=== PATIENT | male | born 1990 | race Caucasian/White ===

== ENCOUNTER 2017-09-02 21:43 | Inpatient (IN) | payer MEDICAID ==
[~2017-09-02] VITALS: Ht 180.3 cm; Wt 64.5 kg
[2017-09-02 22:28] LABS: microscopic required? NO
[2017-09-02 22:31] LABS: BASOPHIL % 0.7 % (0-2); PLATELET COUNT 277 x10^3mcL (130-400); RED CELL DISTRIBUTION WIDTH 13.6 % (11.5-14.5)
[2017-09-02 22:34] LABS: urine erythrocyte NEGATIVE (NEGATIVE)
[2017-09-02 22:45] LABS: ALKALINE PHOSPHATASE 98 U/L (46-116); ALT/SGPT 23 U/L (16-63); AST/SGOT 17 U/L (15-37); BILIRUBIN TOTAL 0.36 mg/dL (0.20-1.00); CALCIUM 8.7 mg/dL (8.5-10.1); CHLORIDE SERUM 100 mmol/L (98-107); CREATININE SERUM 1.1 mg/dL (0.7-1.3); GFR1 > 60 mL/min; GLUCOSE SERUM 102 mg/dL (74-106); MAGNESIUM 2.4 mg/dL (1.8-2.4); SODIUM SERUM 136 mmol/L (136-145)
[2017-09-02 22:48] LABS: POTASSIUM SERUM 2.6 mmol/L (3.5-5.1)
[2017-09-02 22:55] LABS: AMPHETAMINE QUAL UR NONE DETECTED (NEG <=1000)
[2017-09-03] VITALS (7 sets, daily range): BP systolic 105–143; BP diastolic 44–75
[2017-09-03 01:19] LABS: CHOLESTEROL/HDL RATIO 5.8
[2017-09-03 01:23] LABS: T3 TOTAL 1.67 ng/mL
[2017-09-03 01:29] LABS: FREE T4 1.2 ng/dL (0.76-1.46); FREE THYROXINE INDEX 3.3 ug/dL (1.4-4.5); T4(THYROXINE) 8.7 ug/dL (4.7-13.3)
[2017-09-03 09:53] LABS: BASOPHIL % 0.7 % (0-2); PLATELET COUNT 220 x10^3mcL (130-400)
[2017-09-03 10:13] LABS: CALCIUM 8.5 mg/dL (8.5-10.1); CARBON DIOXIDE 23.2 mmol/L (21-32); CHLORIDE SERUM 108 mmol/L (98-107); CREATININE SERUM 0.8 mg/dL (0.7-1.3); GFR1 > 60 mL/min; GLUCOSE SERUM 95 mg/dL (74-106); POTASSIUM SERUM 3.9 mmol/L (3.5-5.1); SODIUM SERUM 139 mmol/L (136-145)
[2017-09-04 06:02] VITALS: BP 116/69
[2017-09-04 07:24] LABS: BASOPHIL % 0.8 % (0-2); PLATELET COUNT 208 x10^3mcL (130-400)
[2017-09-04 07:28] LABS: CALCIUM 8.4 mg/dL (8.5-10.1); CARBON DIOXIDE 22.8 mmol/L (21-32); CHLORIDE SERUM 111 mmol/L (98-107); CREATININE SERUM 0.9 mg/dL (0.7-1.3); GFR1 > 60 mL/min; GLUCOSE SERUM 91 mg/dL (74-106); MAGNESIUM 2.2 mg/dL (1.8-2.4); PHOSPHOROUS 3.6 mg/dL (2.5-4.9); POTASSIUM SERUM 3.6 mmol/L (3.5-5.1); SODIUM SERUM 142 mmol/L (136-145)
[2017-09-04 09:00] VITALS: BP 133/81
[2017-09-04 13:48] VITALS: BP 106/52
[2017-09-04 17:33] VITALS: BP 121/69
[2017-09-04 21:42] VITALS: BP 129/79
[2017-09-05 06:04] VITALS: BP 102/51
[2017-09-05 06:13] LABS: BASOPHIL % 0.7 % (0-2); PLATELET COUNT 243 x10^3mcL (130-400); RED CELL DISTRIBUTION WIDTH 13.9 % (11.5-14.5)
[2017-09-05 06:27] LABS: CALCIUM 8.5 mg/dL (8.5-10.1); CARBON DIOXIDE 21.6 mmol/L (21-32); CHLORIDE SERUM 110 mmol/L (98-107); CREATININE SERUM 0.8 mg/dL (0.7-1.3); GFR1 > 60 mL/min; GLUCOSE SERUM 90 mg/dL (74-106); POTASSIUM SERUM 3.6 mmol/L (3.5-5.1); SODIUM SERUM 142 mmol/L (136-145)
[2017-09-05 08:12] VITALS: BP 111/57
[2017-09-05 13:19] VITALS: BP 119/72
[2017-09-05 17:04] VITALS: BP 123/62
[2017-09-05 21:02] VITALS: BP 124/74
[2017-09-06 05:08] VITALS: BP 112/52
[2017-09-06 06:15] LABS: BASOPHIL % 0.7 % (0-2); PLATELET COUNT 263 x10^3mcL (130-400); RED CELL DISTRIBUTION WIDTH 13.8 % (11.5-14.5)
[2017-09-06 06:26] LABS: CALCIUM 8.6 mg/dL (8.5-10.1); CHLORIDE SERUM 112 mmol/L (98-107); CREATININE SERUM 0.9 mg/dL (0.7-1.3); GFR1 > 60 mL/min; GLUCOSE SERUM 93 mg/dL (74-106); POTASSIUM SERUM 3.8 mmol/L (3.5-5.1); SODIUM SERUM 144 mmol/L (136-145)
[2017-09-06 09:29] VITALS: BP 124/65
[2017-09-06 13:53] VITALS: BP 128/74
[2017-09-06] MEDS ORDERED: TRAZODONE100 MG PO (14:52)
[2017-09-06] MEDS ORDERED: ZIPRASIDONE HCL40 M1 PO (14:53)
[2017-09-06] MEDS ORDERED: LORAZEPAM0.5 MG PO (14:54)
[2017-09-06 15:23] VITALS: BP 128/74
== END 2017-09-06 16:55 | disposition home or self-care (01) | DRG 425 ==
LOC: ED 21:43 → DU 23:26
PROVIDERS: Emergency Medicine; Family Medicine; ADMIT Family Medicine
DX: E87.6 Hypokalemia (principal); N17.0 Acute kidney failure with tubular necrosis; G93.41 Metabolic encephalopathy; S00.83XA Contusion of other part of head, initial encounter; F15.10 Other stimulant abuse, uncomplicated; D72.829 Elevated white blood cell count, unspecified; F20.9 Schizophrenia, unspecified; R73.03 Prediabetes; F43.0 Acute stress reaction; E78.1 Pure hyperglyceridemia; F12.10 Cannabis abuse, uncomplicated; Z79.899 Other long term (current) drug therapy; Z68.1 Body mass index [BMI] 19.9 or less, adult; X83.8XXA Intentional self-harm by other specified means, initial encounter; Y93.89 Activity, other specified; Y92.018 Other place in single-family (private) house as the place of occurrence of the external cause
CPT/HCPCS: 83880; 84439; G0480; J1200; J2060; J3480; J3486; J7030; J7040; Q0092

== ENCOUNTER 2017-12-24 10:54 | Emergency (ER) | payer OTHER ==
[~2017-12-24] VITALS: Ht 177.8 cm; Wt 82.1 kg
[~2017-12-24 10:54] MED LIST: LORAZEPAM0.5 MG PO; TRAZODONE100 MG PO; ZIPRASIDONE HCL40 M1 PO
[2017-12-24 11:03] VITALS: Ht 177.8 cm; Wt 82.1 kg
[2017-12-24 11:59] VITALS: BP 119/61
== END 2017-12-24 11:59 | disposition home or self-care (01) ==
LOC: ED 10:54
DX: F20.9 Schizophrenia, unspecified (principal); Z76.0 Encounter for issue of repeat prescription

== ENCOUNTER 2018-01-05 10:15 | Emergency (ER) | payer OTHER ==
[~2018-01-05] VITALS: Ht 170.2 cm; Wt 81.6 kg
[2018-01-05 10:30] VITALS: Ht 170.2 cm; Wt 81.6 kg
[2018-01-05 11:28] VITALS: BP 121/63
== END 2018-01-05 11:28 | disposition home or self-care (01) ==
LOC: ED 10:15
DX: F41.9 Anxiety disorder, unspecified (principal); F20.9 Schizophrenia, unspecified; Z76.0 Encounter for issue of repeat prescription

== ENCOUNTER 2019-03-23 16:59 | Emergency (ER) | payer OTHER ==
[~2019-03-23] VITALS: Ht 180.3 cm; Wt 73.9 kg
[2019-03-23 17:08] VITALS: Ht 180.3 cm; Wt 73.9 kg
[2019-03-23 18:09] LABS: BASOPHIL % 0.6 % (0-2); PLATELET COUNT 254 x10^3mcL (130-400); RED CELL DISTRIBUTION WIDTH 14.2 % (11.5-14.5)
[2019-03-23 18:42] LABS: ALBUMIN 3.4 g/dL (3.4-5.0); ALKALINE PHOSPHATASE 67 U/L (46-116); ALT/SGPT 31 U/L (16-63); AST/SGOT 15 U/L (15-37); BILIRUBIN TOTAL 0.32 mg/dL (0.20-1.00); C REACTIVE PROTEIN 0.3 mg/dL (<=0.9); CALCIUM 8.7 mg/dL (8.5-10.1); CARBON DIOXIDE 19.8 mmol/L (21-32); GFR1 > 60 mL/min; GLUCOSE SERUM 139 mg/dL (74-106); TOTAL PROTEIN, SERUM 6.7 g/dL (6.4-8.2)
[2019-03-23 18:53] LABS: CHLORIDE SERUM 108 mmol/L (98-107); POTASSIUM SERUM 3.5 mmol/L (3.5-5.1); SODIUM SERUM 144 mmol/L (136-145)
[2019-03-23 20:28] VITALS: BP 123/68
== END 2019-03-23 20:28 | disposition home or self-care (01) ==
LOC: ED 16:59
PROVIDERS: Specialist
DX: F41.9 Anxiety disorder, unspecified (principal); F20.9 Schizophrenia, unspecified
CPT/HCPCS: 36415; G0480; J1630; J2060

== ENCOUNTER 2019-04-09 21:42 | Emergency (ER) | payer OTHER ==
[~2019-04-09] VITALS: Ht 170.2 cm; Wt 72.1 kg
[2019-04-09 21:50] VITALS: Ht 170.2 cm; Wt 72.1 kg
[2019-04-10 00:21] VITALS: BP 147/100
== END 2019-04-10 00:21 | disposition home or self-care (01) ==
LOC: ED 21:42
DX: F41.9 Anxiety disorder, unspecified (principal); F20.9 Schizophrenia, unspecified; Z76.0 Encounter for issue of repeat prescription

== ENCOUNTER 2019-04-15 15:35 | Emergency (ER) | payer OTHER ==
[~2019-04-15] VITALS: Ht 180.3 cm; Wt 74.8 kg
[2019-04-15 15:39] VITALS: BP 94/63; Ht 180.3 cm; Wt 74.8 kg
== END 2019-04-15 16:30 | disposition home or self-care (01) ==
LOC: ED 15:35
DX: F20.9 Schizophrenia, unspecified (principal); F41.9 Anxiety disorder, unspecified; F17.210 Nicotine dependence, cigarettes, uncomplicated

== ENCOUNTER 2020-02-15 16:25 | Emergency (ER) | payer MEDICAID ==
[~2020-02-15] VITALS: Ht 172.7 cm; Wt 86.2 kg
[2020-02-15 16:33] VITALS: Ht 172.7 cm; Wt 86.2 kg
[2020-02-15 16:52] VITALS: BP 111/54
== END 2020-02-15 16:52 | disposition home or self-care (01) ==
LOC: ED 16:25
DX: Z76.0 Encounter for issue of repeat prescription (principal)